=== PATIENT | male | born 2000 | race Caucasian/White ===

== ENCOUNTER 2022-03-20 07:40 | Emergency (ER) | payer OTHER ==
[~2022-03-20] VITALS: Ht 167.6 cm; Wt 62.0 kg
[2022-03-20 07:43] VITALS: BP 130/84
[2022-03-20] MEDS ORDERED: ACETAMINOPHEN 325MG TABLET PO ONE (08:15)
[2022-03-20] MEDS ORDERED: TOPUD PO (08:51)
== END 2022-03-20 11:10 | disposition home or self-care (01) ==
LOC: ER 07:40
DX: R07.89 Other chest pain (principal); J45.909 Unspecified asthma, uncomplicated; Z91.013 Allergy to seafood
CPT/HCPCS: 71045; 93005; 99283